=== PATIENT | male | born 1955 | race Caucasian/White ===

== ENCOUNTER → 2020-10-12 08:25 | Outpatient (BNVA) | payer OTHER, SELFPAY | PROVIDERS: PCP Internal Medicine; Referring Provider Internal Medicine; Visit Provider Surgery | DX: Z76.89 Persons encountering health services in other specified circumstances (principal) ==

== ENCOUNTER → 2021-07-14 08:04 | Outpatient (BNVA) | payer MEDICARE, BC, SELFPAY | PROVIDERS: PCP Internal Medicine; Visit Provider Surgery | DX: Z13.89 Encounter for screening for other disorder (principal) | CPT/HCPCS: Q3014 ==

== ENCOUNTER → 2021-08-04 11:58 | Outpatient (BNVA) | payer MEDICARE, BC, SELFPAY | PROVIDERS: PCP Internal Medicine; Visit Provider Surgery | DX: E66.9 Obesity, unspecified (principal); Z68.29 Body mass index [BMI] 29.0-29.9, adult | CPT/HCPCS: 99212 ==

== ENCOUNTER → 2022-02-09 11:52 | Outpatient (BNVA) | payer MEDICARE, BC, SELFPAY | PROVIDERS: PCP Internal Medicine; Visit Provider Surgery | DX: E66.9 Obesity, unspecified (principal); K90.9 Intestinal malabsorption, unspecified; I10 Essential (primary) hypertension; Z68.30 Body mass index [BMI] 30.0-30.9, adult; Z87.891 Personal history of nicotine dependence; Z98.84 Bariatric surgery status | CPT/HCPCS: 99212 ==

== ENCOUNTER → 2023-01-11 11:50 | Outpatient (BNVA) | payer MEDICARE, BC, SELFPAY | PROVIDERS: PCP Internal Medicine; Visit Provider Surgery | DX: E66.9 Obesity, unspecified (principal); I10 Essential (primary) hypertension; E11.9 Type 2 diabetes mellitus without complications; Z68.31 Body mass index [BMI] 31.0-31.9, adult; Z98.84 Bariatric surgery status | CPT/HCPCS: 99212 ==

== ENCOUNTER → 2023-02-03 12:12 | Outpatient (BNVA) | payer MEDICARE, BC, SELFPAY | PROVIDERS: PCP Internal Medicine; Visit Provider Surgery | DX: E66.9 Obesity, unspecified (principal); Z68.30 Body mass index [BMI] 30.0-30.9, adult | CPT/HCPCS: 99212 ==

== ENCOUNTER → 2023-03-03 08:02 | Outpatient (BNVA) | payer MEDICARE, BC, SELFPAY | PROVIDERS: PCP Internal Medicine; Visit Provider Surgery | DX: E66.9 Obesity, unspecified (principal); Z68.30 Body mass index [BMI] 30.0-30.9, adult; Z98.84 Bariatric surgery status | CPT/HCPCS: Q3014 ==

== ENCOUNTER → 2023-03-31 08:10 | Outpatient (BNVA) | payer MEDICARE, BC, SELFPAY | PROVIDERS: PCP Internal Medicine; Visit Provider Surgery | DX: E66.9 Obesity, unspecified (principal); Z68.30 Body mass index [BMI] 30.0-30.9, adult | CPT/HCPCS: Q3014 ==

== ENCOUNTER 2024-11-15 11:05 | Outpatient (AMB) | payer MEDICARE, BC, SELFPAY ==
--- NOTE | 2024-11-15 11:06 | MHC.OFFVISWM ---
VS Expanded 11/15/24 11:11 BP 134/63 Blood Pressure Location Rt brachial Blood Pressure Position Sitting Pulse 80 Pulse Source Pulse Oximeter Temp 97.7 F Temperature Source Temporal Artery Scan Pulse Oximetry 100 Oxygen Delivery Method Room Air Height 5 ft 9 in Weight 188 lb 9.6 oz BMI 27.8 Body Fat % 23.6 Body Fat Mass 44.6 Fat Free Mass 144.0 Visceral Fat Rating 14.0 Body Water % 53.0 Body Water Mass 99.8 Muscle Mass/Score 137.0 Basal Metabolic Rate/Score 1,883 Intake Visit Reasons: OV Follow Up s/p LRYGP 2012 Allergies No Known Allergies Allergy (Verified 11/15/24 11:40) Medication List - Last Reconciled 11/15/24 by Isaac Rizvi MD allopurinol 100 mg PO DAILY lisinopril 10 mg PO DAILY pantoprazole 40 mg PO DAILY semaglutide (Ozempic) 0.25 mg (0.368 mL) subcut QWEEK simvastatin 40 mg PO DAILY HPI Comments Details: Overall weight loss: 65% EWL from surgery weight Lost recently 27lbs on Agapito Is doing 3 meals per day He has noticed that he has lost muscle and he is less stable when he stands [facility] Medical History (Updated 11/15/24 @ 11:43 by Isaac Rizvi MD) Non-insulin dependent type 2 diabetes mellitus Hypertension Surgical History S/P gastric bypass Family History Mother No problems noted. Father No problems noted. Brother No problems noted. Brother No problems noted. Brother No problems noted. Sister No problems noted. Sister No problems noted. Sister No problems noted. Social History (Updated 11/15/24 @ 11:09 by Marni Stubbs CMA) Alcohol intake: current Alcohol intake frequency: a few times a week Alcohol type: wine Patient Tobacco Use Status: Former Tobacco user Physical Exam Vital Signs: Last Vital Signs Temp 97.7 F 11/15/24 11:11 Pulse 80 11/15/24 11:11 BP 134/63 11/15/24 11:11 Pulse Ox 100 11/15/24 11:11 Oxygen Delivery Method Room Air 11/15/24 11:11 BMI result Body Mass Index 27.8 GI Inspection: Yes normal to inspection and Yes incision (well healed) Assessment & Plan Assessment & Plan (1) Intestinal malabsorption: Code(s): K90.9 - Intestinal malabsorption, unspecified Category: Medical Qualifiers: Intestinal malabsorption type: other intolerance-related malabsorption Qualified Code(s): K90.49 - Malabsorption due to intolerance, not elsewhere classified Plan: 1. We discussed the importance of the protein intake especially in conjunction with the Mounjaro and the gastric bypass. We discussed how the bariatric surgery affects the absorption of protein and in conjunction with the anorexic effect of mounjaro he can become malnourished. We discussed the importance of consuming at least two Celebrate protein bars, or the 1-2 bottles of the Celebrate protein water. I also encouraged him to exercise regularly about 150 min per week Orders: Orders Complete Blood Count Auto Diff Today K90.9 - Intestinal malabsorption, unspecified Lipid Panel Today K90.9 - Intestinal malabsorption, unspecified IRON PROFILE Today K90.9 - Intestinal malabsorption, unspecified Vitamin B12 and Folate Today K90.9 - Intestinal malabsorption, unspecified Vitamin B1 Today K90.9 - Intestinal malabsorption, unspecified Vitamin A Today K90.9 - Intestinal malabsorption, unspecified TSH reflex Free T4 Today K90.9 - Intestinal malabsorption, unspecified Insulin Today K90.9 - Intestinal malabsorption, unspecified Hemoglobin A1c Today K90.9 - Intestinal malabsorption, unspecified Comprehensive Met. Panel Today K90.9 - Intestinal malabsorption, unspecified Zinc Today K90.9 - Intestinal malabsorption, unspecified C Reactive Protein Today K90.9 - Intestinal malabsorption, unspecified Ferritin Today K90.9 - Intestinal malabsorption, unspecified Vitamin D 25-OH Total Today K90.9 - Intestinal malabsorption, unspecified Referrals Nutrition/Dietitian Referral K90.9 - Intestinal malabsorption, unspecified Behavioral Health Referral K90.9 - Intestinal malabsorption, unspecified
[2024-11-15 11:11] VITALS: BP 134/63; PULSE 80; TEMP 36.5; O2SAT 100; BMI 27.8
== END 2024-11-15 11:45 | disposition home or self-care (01) ==
LOC: HO.HBS 11:05
PROVIDERS: PCP Internal Medicine; Visit Provider Surgery
DX: K91.2 Postsurgical malabsorption, not elsewhere classified (principal)
CPT/HCPCS: 99213

== ENCOUNTER 2024-11-15 11:05 | Outpatient (REF) | payer MEDICARE, BC, SELFPAY | END 2024-11-15 11:06 | disposition home or self-care (01) | LOC: HO.LAB 11:05 | PROVIDERS: PCP Internal Medicine; Visit Provider Surgery | DX: K90.49 Malabsorption due to intolerance, not elsewhere classified (principal) | CPT/HCPCS: 99212 ==

== ENCOUNTER 2025-03-07 11:03 | Outpatient (AMB) | payer MEDICARE, BC, SELFPAY ==
--- NOTE | 2025-03-07 11:17 | A.OFFVIS_ITS ---
Intake Visit Reasons: OV Follow Up s/p LRYGP 2013 Allergies No Known Allergies Allergy (Verified 11/15/24 11:40) HPI Comments Details: Overall weight loss: 65% EWL from surgery weight Lost recently 27lbs on Mounjaro. He is off the Mounjaro for a month and he maintains the weight loss so far. Is doing 2 protein bars and 2 meals per day He is doing the stationary bike for 500 calories, 4 days per week [facility] Medical History (Updated 03/07/25 @ 12:01 by Isaac Rizvi MD) Non-insulin dependent type 2 diabetes mellitus Hypertension Surgical History S/P gastric bypass Family History Mother No problems noted. Father No problems noted. Brother No problems noted. Brother No problems noted. Brother No problems noted. Sister No problems noted. Sister No problems noted. Sister No problems noted. Social History (Updated 11/15/24 @ 11:09 by Marni Stubbs CMA) Alcohol intake: current Alcohol intake frequency: a few times a week Alcohol type: wine Patient Tobacco Use Status: Former Tobacco user Physical Exam GI Inspection: Yes normal to inspection and Yes incision (well healed) Palpation (GI): Soft to palpation Extrem Right lower extremity: normal to inspection Left lower extremity: normal to inspection Assessment & Plan Assessment & Plan (1) Intestinal malabsorption: Code(s): K90.9 - Intestinal malabsorption, unspecified Category: Medical Qualifiers: Intestinal malabsorption type: other intolerance-related malabsorption Qualified Code(s): K90.49 - Malabsorption due to intolerance, not elsewhere classified Plan: 1. We discussed the importance of the protein intake especially in conjunction with the Mounjaro and the gastric bypass. We discussed how the bariatric surgery affects the absorption of protein and in conjunction with the anorexic effect of mounjaro he can become malnourished. We discussed the importance of consuming at least two Celebrate protein bars. 2. Continue present nutritional and exercise plan Medications: New cholecalciferol (vitamin D3) 125 mcg PO DAILY 90 caps 0RF E55.9 - Vitamin D deficiency, unspecified mecobalamin (vitamin B12) place tablet under tongue and allow to dissolve for at least30 secs before swallowing 1,000 mcg sublingual DAILY 90 tabs 0RF E53.8 - Deficiency of other specified B group vitamins
--- OUTSIDE RECORDS SUMMARY | 2025-03-07 11:35 | XMS_ITS | Encounter Summary ---
Author Organization [facility] Address [address] [place] [address] Care Team Providers Care Appliance Service Supervisor Name Role Phone Hasmukh Lua DO Unavailable [phone] Hasmukh Lua DO Primary Care Provider + [phone] Encounter Details Date Type Department Care Team (Late st Contact Info) Description 11/20/2024 Scanned Document [facility] Department of Internal Medicine Hasmukh Lua MD [address] [place] [address] [phone] Hasmukh Lua DO [address] [place] [phone] Social History Tobacco Use Types Packs/Day Years Used Date Smoking Tobacco: Former Cigarettes Smokeless Tobacco: Never Comments:Quit at age 19 PHQ-2 Answer Date Recorded PHQ-2 Total Score 0 06/24/2024 Sex and Gender Information Value Date Recorded Sex Assigned at Male 06/13/2023 7:12 AM EDT Legal Sex Male 6:39 PM EDT Gender Identity Male 06/13/2023 7:12 AM EDT Sexual Orientation Other 06/13/2023 7: 12 AM EDT documented as of this encounter Plan of Treatment Upcoming Encounters Date Type Department Care Team (Late st Contact Info) Description 07/02/2025 11:30 AM EDT Office Visit [facility] Department of Internal Medicine Hasmukh Lua MD [address] [place] [address] [phone] Hasmukh Lua DO [address] [place] [phone] documented as of this encounter Visit Diagnoses Not on filedocumented in this encounter Care Teams Appliance Service Supervisor Relationship Specialty Start Date End Date Hasmukh Lua DO [address] [place] [address] PCP - [facility] Patients 11/30/22 Hasmukh Lua DO [address] [place] [address] PCP - General Internal Medicine 06/16/23 documented as of this encounter
--- OUTSIDE RECORDS SUMMARY | 2025-03-07 11:35 | XMS_ITS | Encounter Summary ---
Author Organization [facility] Address [address] [place] [address] Care Team Providers Care C Application Developer Name Role Phone Hasmukh Lua DO Unavailable [phone] Hasmukh Lua DO Primary Care Provider [phone] Reason for Visit * Reason Onset Date Comments Medication Refill 03/05/2025 Encounter Details Date Type Department Care Team (Late st Contact Info) Description 03/05/2025 Refill [facility] Department of Internal Medicine Hasmukh Lua MD [address] [place] [phone] Hasmukh Lua DO [address] [place], [place] [phone] Class 1 obesity with body mass index (BMI) of 32.0 to 32.9 in adult, unspecified obesity type, unspecified whether serious comorbidity present Social History Tobacco Use Types Packs/Day Years [...] Description 07/02/2025 11:30 AM EDT Office Visit [facility] Department of Internal Medicine Hasmukh Lua MD [address] [place] [phone] Hasmukh Lua DO [address] [place] [address] documented as of this encounter Visit Diagnoses Diagnosis Class 1 obesity with body mass index (BMI) of 32.0 to 32.9 in adult, unspecified obesity type, unspecified whether serious comorbidity present documented in this encounter Care Teams C Application Developer Relationship Specialty Start Date End Date Hasmukh Lua DO [address] [place] [phone] PCP - [facility] Patients 11/30/22 Hasmukh Lua DO [address] [place] [address] PCP - General Internal Medicine 06/16/23 documented as of this encounter
--- OUTSIDE RECORDS SUMMARY | 2025-03-07 11:35 | XMS_ITS | Clinical Summary ---
Author Organization [facility] Address [address] [place] [address] Care Team Providers Care Medical Claims Representative Name Role Phone Hasmukh Lua MD Primary Care Provider [phone] Allergies No known active allergies Medications calcium carbonate-mag hydroxid 1,000-200 mg tablet,chewable Take by mouth. Active lansoprazole (PREVACID) 30 mg capsule 5 Active multivitamin,tx -irip-Xt-EQ-min 27-0.4 mg tablet Take by mouth. Activ e simvastatin (ZOCOR) 40 mg tablet Take 40 mg by mouth. 3 9 Active cyanocobalamin 100 mcg tablet Take by mouth. Active fluorouracil (EFUDEX) 5 % creamIndication s:AK (actinic keratosis) Apply twice daily to affected areas 40 g 1 9 Active calcipotriene (DOVONOX) 0.005 % creamIndication s:AK (actinic keratosis) Apply twice daily to affected areas 60 g 1 9 Active Additional Information Patient not taking.Reported on 09/11/2019 allopurinol (ZYLOPRIM) 100 mg tablet Take 100 mg by mouth. 1 9 Active Social History Tobacco Use Types Packs/Day Years Used Date Smoking Tobacco: Never Assessed Sex and Gender Information Value Date Recorded Sex Assigned at Not on file Legal Sex Male 4:57 AM EST Gender Identity Not on file Sexual Orientation Not on file Plan of Treatment Health Maintenance Due Date Last Done Comments CT Colonography 1954 Colonoscopy 1954 Colorectal Cancer Screening 1954 FIT-DNA (Cologuard) 1954 FIT 1954 FOBT 1954 Flex Sigmoidoscopy - 5y 1954 HIV Screening 1954 DTaP,Tdap,and Td Vaccines (1 - Tdap) 1972 Pneumococcal Vaccine, 50+ Ye ars (1 of 1 - PCV) 2004 Zoster Vaccines (1 of 2) 2004 COVID-19 Vaccine (1 - 2023-2 5 season) 2024 Influenza Vaccine (Season Ended) 2025 HPV Vaccines Aged Out No longer eligi ble based on patient's age to complete this topic Hepatitis A Vaccines Aged Out No long er eligible based on patient's age to complete this topic Meningococcal Vaccine Aged Out No roya mary carmen eligible based on patient's age to complete this topic Insurance MEDICARE PART A & B [place] [id number] Care Teams Medical Claims Representative Relationship Specialty Start Date End Date Hasmukh Lua MD [address] [place] [address] PCP - General 12/27/17
--- OUTSIDE RECORDS SUMMARY | 2025-03-07 11:35 | XMS_ITS | Encounter Summary ---
Author Organization [facility] Address [address] [place] [address] Care Team Providers Care Pressroom Worker Name Role Phone Hasmukh Lua DO Unavailable [phone] Hasmukh Lua DO Primary Care Provider +- [phone] Encounter Details Date Type Department Care Team (Late st Contact Info) Description 06/16/2023 Scanned Document [facility] Department of Internal Medicine Hasmukh Lua MD [address] [place] [phone] Hasmukh Lua DO [address] [place] [address] Social History Tobacco Use Types Packs/Day Years Used Date Smoking Tobacco: Never Assessed PHQ-2 Answer Date Recorded PHQ-2 Total Score 0 06/16/2023 Sex and Gender Information Value Date Recorded Sex Assigned at Male 06/13/2023 7:12 AM EDT Legal Sex Male 6:39 PM EDT Gender Identity Male 06/13/2023 7:12 AM EDT Sexual Orientation Other 06/13/2023 7: 12 AM EDT documented as of this encounter Functional Status * Over the past 2 weeks, how often have you been bothered by any of the following problems? Question Answer Date of Assessment Author Patient Health Questionnaire -2 Score 0 06/16/2023 9:41 AM EDT Hasmukh Lua, DO * Question Answer Date of Assessment Author Patient Health Questionnaire -9 Score 0 06/16/2023 9:41 AM EDT Hasmukh Lua, DO * Question Answer Date of Assessment Author Little interest or pleasure in doing things Not at all 06/16/2023 9:41 AM Hasmukh Blue, DO Feeling down, depressed, or hopeless Not at all 06/16/2023 9:41 AM Hasmukh Blue, DO Trouble falling or staying asleep, or sleeping too much Not at all 06/16/2023 9:41 AM Hasmukh Blue, DO Feeling tired or having little energy Not at all 06/16/2023 9:41 AM Hasmukh Blue, DO Poor appetite or overeating Not at all 06/16/2023 9: 41 AM Hasmukh Blue, DO Feeling bad about yourself - or that you are a failure or have let yourself or your family down Not at all 06/16/2023 9:41 AM Hasmukh Blue, DO Trouble concentrating on things, such as reading the newspaper or watching television Not at all 06/16/2023 9:41 AM Hasmukh Blue, DO Moving or speaking so slowly that other people could have noticed? Or the opposite - being so fidgety or restless that you have been moving around a lot more than usual. Not at all 06/16/2023 9:41 AM Hasmukh Molina, DO Thoughts that you would be better off or hurting yourself in some way Not at all 06/16/2023 9:41 AM MARIOT Rock Lua DO documented as of this encounter Plan of Treatment Upcoming Encounters Date Type Department Care Team (Late st Contact Info) Description 07/02/2025 11:30 AM EDT Office Visit [facility] Department of Internal Medicine Hasmukh Lua MD [address] [place] [phone] Hasmukh Lua DO [address] [place], [place] [address] documented as of this encounter Visit Diagnoses Not on filedocumented in this encounter Care Teams Pressroom Worker Relationship Specialty Start Date End Date Hasmukh Lua DO [address] [place] [address] PCP - [facility] Patients 11/30/22 Hasmukh Lua DO [address] [place] [address] PCP - General Internal Medicine 06/16/23 documented as of this encounter
--- OUTSIDE RECORDS SUMMARY | 2025-03-07 11:35 | XMS_ITS | Encounter Summary ---
Author Organization [facility] Address [address] [place] [address] Care Team Providers Care Extermination Inspector Name Role Phone Hasmukh Lua DO Unavailable [phone] Hasmukh Lua DO Primary Care Provider + [phone] Encounter Details Date Type Department Care Team (Late st Contact Info) Description 02/11/2025 Scanned Document [facility] Department of Internal Medicine Hasmukh Lua MD [address] [place] [phone] Hasmukh Lua DO [address] [place] [phone] Social History Tobacco Use Types Packs/Day Years [...] Description 07/02/2025 11:30 AM EDT Office Visit [facility] Department of Internal Medicine Hasmukh Lua MD [address] [place] [phone] Hasmukh Lua DO [address] [place] [address] documented as of this encounter Visit Diagnoses Not on filedocumented in this encounter Care Teams Extermination Inspector Relationship Specialty Start Date End Date Hasmukh Lua DO [address] [place] [address] PCP - [facility] 11/30/22 Hasmukh Lua DO [address] [place] [address] PCP - General Internal Medicine 06/16/23 documented as of this encounter
--- OUTSIDE RECORDS SUMMARY | 2025-03-07 11:35 | XMS_ITS | Clinical Summary ---
Author Organization [facility] Address [address] [place] [address] Care Team Providers Care Director Part Name Role Phone Hasmukh Lua DO Unavailable [phone] Hasmukh Lua DO Primary Care Provider [phone] Allergies No known active allergies Medications PANTOprazole (PROTONIX) 40 MG EC tabletIndications :Gastroesophageal reflux disease without esophagitis TAKE 1 TABLET BY MOUTH EVERY DAY 90 tablet 3 01/01/20 24 Active simvastatin (ZOCOR) 40 MG tabletIndications :Hyperlipidemia, unspecified hyperlipidemia type TAKE 1 TABLET BY MOUTH EVERY DAY 90 tablet 3 05/07/20 24 Active allopurinol (ZYLOPRIM) 100 mg tabletIndications :Gout, unspecified cause, unspecified chronicity, unspecified site TAKE 1 TABLET BY MOUTH EVERY DAY 90 tablet 3 05/07/20 24 Active lisinopril (PRINIVIL,ZeSTRIL ) 10 MG tabletIndications :Primary hypertension TAKE 1 TABLET BY MOUTH EVERY DAY 90 tablet 3 07/15/20 24 Active Mounjaro 10 MG/0.5ML pen-injectorIndic ations:Class 1 obesity with body mass index (BMI) of 32.0 to 32.9 in adult, unspecified obesity type, unspecified whether serious comorbidity present INJECT 1 PEN (10 MG TOTAL) UNDER THE SKIN ONCE A WEEK. 2 each 3 02/10/20 25 Active phentermine 37.5 MG capsuleIndication s:Class 1 obesity with body mass index (BMI) of 32.0 to 32.9 in adult, unspecified obesity type, unspecified whether serious comorbidity present Take 1 capsule (37.5 mg total) by mouth every morning. 90 capsule 03/05/20 25 Active Mounjaro 10 MG/0.5ML pen-injectorIndic ations:Class 1 obesity with body mass index (BMI) of 32.0 to 32.9 in adult, unspecified obesity type, unspecified whether serious comorbidity present INJECT 1 PEN(S) (10 MG TOTAL) UNDER THE SKIN ONCE A WEEK. 2 each 3 10/16/20 24 025 Discontinued phentermine 37.5 MG capsuleIndication s:Class 1 obesity with body mass index (BMI) of 32.0 to 32.9 in adult, unspecified obesity type, unspecified whether serious comorbidity present Take 1 capsule (37.5 mg total) by mouth every morning. 90 capsule 11/29/19 25 025 Discontinued(Re order) Active Problems Problem Noted Date Diagnosed Date Primary hypertension 06/24/2024 Acute idiopathic gout of multiple sites 06/24/20 Other hyperlipidemia 06/24/2024 Benign prostatic hyperplasia 06/24/2024 Cervical spondylosis 06/24/2024 Impaired fasting glucose 06/24/2024 Resolved Problems Problem Noted Date Diagnosed Date Resolved Date Routine general medical exam ination at a health care facility 06/16/2023 09/25/2024 Encounters Date Type Department Care Team Description 03/05/2025 Refill [facility] Department of Internal Medicine Hasmukh Lua MD [address] [place] [phone] Hasmukh Lua, Class 1 obesity with body mass index (BMI) of 32.0 to 32.9 in adult, unspecified obesity type, unspecified whether serious comorbidity present 03/05/2025 Telephone [facility] Department of Internal Medicine Hasmukh Lua MD [address] [place] [phone] Hasmukh Lua DO 02/11/2025 Scanned Document [facility] Department of Internal Medicine Hasmukh Lua MD [address] [place] [phone] Hasmukh Lua DO 02/09/2025 Refill [facility] Department of Internal Medicine Hasmukh Lua MD [address] [place] [phone] Hasmukh Lua DO Class 1 obesity with body mass index (BMI) of 32.0 to 32.9 in adult, unspecified obesity type, unspecified whether serious comorbidity present from Last 3 Months Immunizations Immunization Administration Dates Next Due Pneumococcal Conjugate 13-Valent 09/25/2019 Pneumococcal Polysaccharide 23-Valent 10/06/2020 Tdap 01/04/2018,06/03/2008 Zoster Vaccine Recombinant (Shingrix) 01/04/2018 Social History Tobacco Use Types Packs/Day Years Used Date Smoking Tobacco: Former Cigarettes Smokeless Tobacco: Never Tobacco Cessation:Counseling Given: Not Answered Comments:Quit at age 19 PHQ-2 Answer Date Recorded PHQ-2 Total Score 0 06/24/2024 Sex and Gender Information Value Date Recorded Sex Assigned at Male 06/13/2023 7:12 AM EDT Legal Sex Male 6:39 PM EDT Gender Identity Male 06/13/2023 7:12 AM EDT Sexual Orientation Other 06/13/2023 7: 12 AM EDT Last Filed Vital Signs Vital Sign Reading Time Taken Comments Blood Pressure 130/82 11/21/2024 7:55 AM EST Pulse 81 11/21/2024 7:55 AM EST Temperature 36.2 ??C (97.1 ??F) 11/21/2024 7:55 AM ES T Respiratory Rate - - Oxygen Saturation 100% 11/21/2024 7:55 AM EST Inhaled Oxygen Concentration - - Weight 86.6 kg (191 lb) 11/21/2024 7:55 AM EST Height 175.3 cm (5' 9 ) 11/21/2024 7:55 AM EST Body Mass Index 28.21 11/21/2024 7:55 AM EST Plan of Treatment Upcoming Encounters Date Type Department Care Team (Late st Contact Info) Description 07/02/2025 11:30 AM EDT Office Visit [facility] Department of Internal Medicine Hasmukh Lua MD [address] [place] [phone] Hasmukh Lua DO [address] [place] [address] Health Maintenance Due Date Last Done Comments Hepatitis C Virus Screening 1954 Colonoscopy 1999 Zoster (Shingles) Vaccine (2 of 2) 03/01/2018 01/04/2018 Abdominal Aortic Aneurysm (AAA) Screening 2019 COVID-19 Vaccine (3 - 2023-2 5 season) 2024 06/10/2021, 2021 Influenza Vaccine 05/30/2025 DTaP/Tdap/Td Vaccines (3 - T d or Tdap) 01/05/2028 01/04/2018, 06/03/2008 RSV Vaccine 60 years and older and Patients (1 - 1-dose 75+ series) 2029 Pneumococcal Vaccines 50+ Completed 2019, 09/25/2019 Hepatitis B Vaccines Aged Out No long er eligible based on patient's age to complete this topic Insurance MEDICARE PART A & B Care Teams Director Part Relationship Specialty Start Date End Date Hasmukh Lua DO [address] [place] [address] PCP - [facility] 11/30/22 Hasmukh Lua DO [address] [place] [phone] PCP - General Internal Medicine 06/16/23
--- OUTSIDE RECORDS SUMMARY | 2025-03-07 11:35 | XMS_ITS | Encounter Summary ---
Author Organization [facility] Address [address] [place] [address] Care Team Providers Care Training Administrator Name Role Phone Hasmukh Lua DO Unavailable [phone] Hasmukh Lua DO Primary Care Provider [phone]- [phone] Encounter Details Date Type Department Care Team (Late st Contact Info) Description 03/05/2025 Telephone [facility] Department of Internal Medicine Hasmukh Lua MD [address] [place] [phone] Hasmukh Lua DO [address] [place], [place] [phone] Social History Tobacco Use Types Packs/Day Years [...] AM EDT documented as of this encounter Miscellaneous Notes * Telephone Encounter - Michelle Bowers - 03/05/2025 9:22 AM EDT Phentermine refill [facility] documented in this encounter Plan of Treatment Upcoming Encounters Date Type Department Care Team (Late st Contact Info) Description 07/02/2025 11:30 AM EDT [facility] Department of Internal Medicine Hasmukh Lua MD [address] [place] [phone] Hasmukh Lua DO [address] [place] [phone] documented as of this encounter Visit Diagnoses Not on filedocumented in this encounter Care Teams Training Administrator Relationship Specialty Start Date End Date Hasmukh Lua DO [address] [place] [phone] PCP - [facility] 11/30/22 Hasmukh Lua DO [address] [place] [phone] PCP - General Internal Medicine 06/16/23 documented as of this encounter
--- OUTSIDE RECORDS SUMMARY | 2025-03-07 11:35 | XMS_ITS | Encounter Summary ---
Author Organization [facility] Address [address] [place] [address] Care Team Providers Care Procedural Nurse Name Role Phone Hasmukh Lua DO Unavailable [phone] Hasmukh Lua DO Primary Care Provider +- [phone] Reason for Visit * Reason Comments Medication Refill Encounter Details Date Type Department Care Team (Late Contact Info) Description 02/13/2023 Refill [facility] Department of Internal Medicine Hasmukh Lua MD [address] [place] [address] [phone] Hasmukh Lua DO [address] [place] [address] [phone] Gastroesophageal reflux disease without esophagitis (Primary Dx) Social History Tobacco Use Types Packs/Day Years [...] Encounters Date Type Department Care Team (Late Contact Info) Description 07/02/2025 11:30 AM EDT Office Visit [facility] Department of Internal Medicine Hasmukh Lua MD [address] [place] [phone] Hasmukh Lua DO [address] [place] [address] documented as of this encounter Visit Diagnoses Diagnosis Gastroesophageal reflux disease without esophagitis- Primary Esophageal reflux documented in this encounter Care Teams Procedural Nurse Relationship Specialty Start Date End Date Hasmukh Lua DO [address] [place] [address] PCP - [facility] Patients 11/30/22 Hasmukh Lua DO [address] [place] [address] PCP - General Internal Medicine 06/16/23 documented as of this encounter
--- OUTSIDE RECORDS SUMMARY | 2025-03-07 11:35 | XMS_ITS | Clinical Summary ---
Author Organization [facility] Address [address] [place] [address] Care Team Providers Care Montessori Teacher Name Role Phone Hasmukh Lua MD Primary Care Provider + [phone] Allergies No known active allergies Medications Medication Sig Dispensed Refills Start Date End Date Status Lansoprazole (PREVACID PO) Take 30 mg by mouth daily. 0 Active simvastatin (ZOCOR) 20 MG tablet Take 20 mg by mouth daily. 0 Active Multiple Vitamins-Minerals (CENTRUM SILVER ADULT 50+ PO) Take by mouth. 0 Active vitamin B-12 (CYANOCOBALAMIN) 100 MCG tablet Take 100 mcg by mouth daily. 0 Active Calcium Carbonate-Vit D-Min (CALCIUM 1200 PO) Take by mouth. 0 Act josé miguel Multiple Vitamins-Minerals (CENTRUM SILVER) tablet Centrum Silver TABS Refills: 0 Active 0 Active simvastatin (ZOCOR) 40 MG tablet 5 03/08/2015 Active phentermine 30 MG capsule Take 1 capsule (30 mg total) by mouth every morning before breakfast. 90 capsule 0 04/27/2015 Active lansoprazole (PREVACID) 30 MG capsule 1 07/26/2015 Active Active Problems Problem Noted Date Diagnosed Date Bariatric surgery status 09/21/2015 Abnormal weight gain 09/21/2015 BMI 27.0-27.9,adult 09/21/2015 Social History Tobacco Use Types Packs/Day Years Used Date Smoking Tobacco: Never Alcohol Use Standard Drinks/Week Comments Yes 0 (1 standard drink = 0.6 oz pur e alcohol) social wine Sex and Gender Information Value Date Recorded Sex Assigned at Not on file Gender Identity Not on file Sexual Orientation Not on file Last Filed Vital Signs Vital Sign Reading Time Taken Comments Blood Pressure 133/70 04/27/2015 2:14 PM EDT Pulse 54 04/27/2015 2:14 PM EDT Temperature 36.6 ??C (97.8 ??F) 04/27/2015 2:14 PM ED T Respiratory Rate 13 03/03/2014 3:50 PM EDT Oxygen Saturation 97% 03/03/2014 3:50 PM EDT Inhaled Oxygen Concentration - - Weight 88 kg (194 lb 1.6 oz) 04/27/2015 2:14 PM EDT Height 177.8 cm (5' 10 ) 04/27/2015 2:14 PM EDT Body Mass Index 27.85 04/27/2015 2:14 PM EDT Plan of Treatment Health Maintenance Due Date Last Done Comments Hepatitis C Screening 1954 COVID-19 Vaccine (#1) 1954 Depression Screening 1966 Preventative Health Evaluation 1972 DTap / Tdap / Td (1 - Tdap) 1973 Colon Cancer Screening (Colonoscopy) 1999 Shingrix-Zoster Vaccine (1 of 2) 2004 Fall Risk Assessment 2019 Pneumococcal Vaccine (1 of 1 - PCV) 2019 Influenza Vaccine (#1) 2024 RSV Adult > 60+ Yrs or Pregn ant (1 - 1-dose 75+ series) 2029 Hepatitis B Vaccines Aged Out No long er eligible based on patient's age to complete this topic RSV Ped < 20 months Aged Out No longe r eligible based on patient's age to complete this topic Advance Directives For more information, please contact: [phone] Latest Code Status on File Code Status Date Activated Date Inactivated Comments Full Code 03/03/2014 3:26 PM 03/03/2014 10:23 PM This code status was ascertained in the following way: discussion with patient. Care Teams Montessori Teacher Relationship Specialty Start Date End Date Hasmukh Lua MD PCP - General Internal Medicine 04/27/15
--- OUTSIDE RECORDS SUMMARY | 2025-03-07 11:35 | XMS_ITS | Encounter Summary ---
Author Organization [facility] Address [address] [place] [address] Care Team Providers Care Supervisor Spinning Name Role Phone Hasmukh Lua DO Unavailable [phone] Hasmukh Lua DO Primary Care Provider + [phone] Encounter Details Date Type Department Care Team (Late st Contact Info) Description 11/13/2023 Scanned Document [facility] Department of Internal Medicine Hasmukh Lua MD [address] [place] [address] [phone] Hasmukh Lua DO [address] [place] [phone] Social History Tobacco Use Types Packs/Day Years [...] Description 07/02/2025 11:30 AM EDT Office Visit [facility] Department of Internal Medicine Hasmukh Lua MD [address] [place] [address] [phone] Hasmukh Lua DO [address] [place] [address] documented as of this encounter Visit Diagnoses Not on filedocumented in this encounter Care Teams Supervisor Spinning Relationship Specialty Start Date End Date Hasmukh Lua DO [address] [place] [address] PCP - [facility] Patients 11/30/22 Hasmukh Lua DO [address] [place] [address] PCP - General Internal Medicine 06/16/23 documented as of this encounter
--- OUTSIDE RECORDS SUMMARY | 2025-03-07 11:35 | XMS_ITS | Encounter Summary ---
Author Organization [facility] Address [address] [place] [address] Care Team Providers Care Tread Builder Name Role Phone Hasmukh Lua DO Unavailable [phone] Hasmukh Lua DO Primary Care Provider + [phone] Encounter Details Date Type Department Care Team (Late st Contact Info) Description 11/14/2024 Scanned Document [facility] Department of Internal Medicine Hasmukh Lua MD [address] [place] [address] [phone] Hasmukh Lua DO [address] [place] [phone] Social History Tobacco Use Types Packs/Day Years [...] Description 07/02/2025 11:30 AM EDT Office Visit [facility] Department of Internal Medicine Hasmukh Lua MD [address] [place] [address] [phone] Hasmukh Lua DO [address] [place] [phone] documented as of this encounter Visit Diagnoses Not on filedocumented in this encounter Care Teams Tread Builder Relationship Specialty Start Date End Date Hasmukh Lua DO [address] [place] [address] PCP - [facility] Patients 11/30/22 aHsmukh Lua DO [address] [place] [address] PCP - General Internal Medicine 06/16/23 documented as of this encounter
== END 2025-03-07 19:18 | disposition home or self-care (01) ==
LOC: HO.HBS 11:04
PROVIDERS: PCP Internal Medicine; Visit Provider Surgery
DX: K91.2 Postsurgical malabsorption, not elsewhere classified (principal)
CPT/HCPCS: 99214

== ENCOUNTER → 2025-03-07 11:03 | Outpatient (BNVA) | payer MEDICARE, BC, SELFPAY | PROVIDERS: PCP Internal Medicine; Visit Provider Surgery | DX: K90.49 Malabsorption due to intolerance, not elsewhere classified (principal); E55.9 Vitamin D deficiency, unspecified; E53.8 Deficiency of other specified B group vitamins | CPT/HCPCS: 99212 ==

== ENCOUNTER 2025-06-27 10:45 | Outpatient (AMB) | payer MEDICARE, BC, SELFPAY ==
--- NOTE | 2025-06-27 10:47 | A.OFFVIS_ITS ---
VS Expanded 06/27/25 11:24 BP 133/63 Blood Pressure Location Rt brachial Blood Pressure Position Sitting Pulse 73 Pulse Source Pulse Oximeter Temp 96.8 F Temperature Source Temporal Artery Scan Pulse Oximetry 100 Oxygen Delivery Method Room Air Height 5 ft 9 in Weight 182 lb BMI 26.9 Body Fat % 24.8 Body Fat Mass 45.2 Fat Free Mass 136.6 Visceral Fat Rating 15.0 Body Water % 51.0 Body Water Mass 92.8 Muscle Mass/Score 129.8 Basal Metabolic Rate/Score 1,789 Intake Visit Reasons: OV Follow Up s/p LRYGP 2012 Allergies No Known Allergies Allergy (Verified 06/27/25 12:56) Medication List - Last Reconciled 06/27/25 by Isaac Rizvi MD allopurinol 100 mg PO DAILY cholecalciferol (vitamin D3) 125 mcg PO DAILY lisinopril 10 mg PO DAILY mecobalamin (vitamin B12) 1,000 mcg sublingual DAILY pantoprazole 40 mg PO DAILY simvastatin 40 mg PO DAILY HPI Comments Details: No new health problems Off Agapito Is doing one protein bar per day and 2 meals per day Exercise: treadmill for 500 calories x6/wk [facility] Medical History (Updated 03/07/25 @ 12:01 by Isaac Rizvi MD) Non-insulin dependent type 2 diabetes mellitus Hypertension Surgical History S/P gastric bypass Family History Mother No problems noted. Father No problems noted. Brother No problems noted. Brother No problems noted. Brother No problems noted. Sister No problems noted. Sister No problems noted. Sister No problems noted. Social History Alcohol intake: current Alcohol intake frequency: a few times a week Alcohol type: wine Patient Tobacco Use Status: Former Tobacco user Physical Exam Vital Signs: Last Vital Signs Temp 96.8 F 06/27/25 11:24 Pulse 73 06/27/25 11:24 BP 133/63 06/27/25 11:24 Pulse Ox 100 06/27/25 11:24 Oxygen Delivery Method Room Air 06/27/25 11:24 BMI result Body Mass Index 26.9 Assessment & Plan Assessment & Plan (1) Overweight: Code(s): E66.3 - Overweight Category: Surgical Plan: 1. Continue present exercise plan 2. Try the 16gr Fit Crunch protein or the Barebell protein bars 3. Do 2 protein bars per day especially 1-2 hours before each food meal to reduce food portions and continue with the two food meals
--- OUTSIDE RECORDS SUMMARY | 2025-06-27 11:23 | XMS_ITS ---
Author Name [facility] Organization Unknown History of Medication Use Medication Directions Dispensed Refills Start Date End Date Stat us PANTOprazole (PROTONIX) 40 MG EC tablet TAKE 1 TABLET BY MOUTH EVERY DAY 03/14/2025 active phentermine 37.5 MG capsule Take 1 capsule (37.5 mg total) by mouth every morning. 03/05/2025 active Mounjaro 10 MG/0.5ML pen-injector INJECT 1 PEN (10 MG TOTAL) UNDER THE SKIN ONCE A WEEK. 02/09/2025 active lisinopril (PRINIVIL,ZeSTRIL) 10 MG tablet TAKE 1 TABLET BY MOUTH EVERY DAY 07/15/2024 active allopurinol (ZYLOPRIM) 100 mg tablet TAKE 1 TABLET BY MOUTH EVERY DAY 05/07/2024 active simvastatin (ZOCOR) 40 MG tablet TAKE 1 TABLET BY MOUTH EVERY DAY 05/07/2024 active Problems Problem Status Onset Date Problem Type Date of Resoluti on Source Impaired fasting glucose active 2024-06-24 ProblemAct [facility] Other hyperlipidemia active 2024-06-24 ProblemAct [facility] Cervical spondylosis active 2024-06-24 ProblemAct [facility] Benign prostatic hyperplasia active 2024-06-24 ProblemAct [facility] Primary hypertension active 2024-06-24 ProblemAct [facility] 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 2024-06-24 ProblemAct [facility] Immunizations Vaccine Date Source Lot Number Status Pneumococcal Polysaccharide 23-Valent 10/06/2020 [facility] completed Pneumococcal Conjugate 13-Valent 09/25/2019 [facility] completed Tdap 01/04/2018 [facility] completed Zoster Vaccine Recombinant (Shingrix) 01/04/2018 [facility] [id number] completed Tdap 06/03/2008 [facility] completed Encounters Encounter Type Encounter Reason Primary Diagnosis Location Date [facility] 06/24/2025 [facility] 03/04/2025 Ambulatory [facility] 11/21/2024 Ambulatory Encounter for general adult medical examination without abnormal findings Encounter for general adult medical examination without abnormal findings [facility] 06/24/2024 Ambulatory [facility] 06/20/2024 Ambulatory Obesity, unspecified Obesity, unspecified [facility] 10/02/2023 Ambulatory Encounter for general adult medical examination without abnormal findings Encounter for general adult medical examination without abnormal findings [facility] 06/16/2023 Ambulatory [facility] 06/13/2023 Care Team Organization Name Specialty Phone Email Start Date End [facility] 02/18/2025 03/26/2025 Alona Mosley [id number] Primary Care 09/19/2024 03/18/2025 [facility] P[facility]an[facility] Primary [facility] 01/24/2024 03/18/2025 [facility] ELIZABETH [facility] Primary Care 10/02/2023 [facility] 06/16/2023 06/16/2023 [facility] 06/16/2023 [facility] 05/12/2023 05/12/2023
--- OUTSIDE RECORDS SUMMARY | 2025-06-27 11:23 | XMS_ITS | Encounter Summary ---
Author Organization [facility] Address [address] [place] [address] Care Team Providers Care Brim Cutter Name Role Phone Hasmukh Lua DO Unavailable [phone] Hasmukh Lua DO Primary Care Provider + [phone] Encounter Details Date Type Department Care Team (Late st Contact Info) Description 11/14/2024 Scanned Document [facility] Department of Internal Medicine Hasmukh Lua MD [address] [place] [address] [phone] Hasmukh Lua DO [address] [place] [address] Social History Tobacco Use Types Packs/Day Years [...] Description 07/02/2025 11:30 AM EDT Office Visit [facility] Department of Internal Medicine Hasmukh Lua MD [address] [place] [address] [phone] Hasmukh Lua DO [address] [place] [address] documented as of this encounter Visit Diagnoses Not on filedocumented in this encounter Care Teams Brim Cutter Relationship Specialty Start Date End Date Hasmukh Lua DO [address] [place] [address] PCP - [facility] Patients 11/30/22 Hasmukh Lua DO [address] [place] [address] PCP - General Internal Medicine 06/16/23 documented as of this encounter
--- OUTSIDE RECORDS SUMMARY | 2025-06-27 11:23 | XMS_ITS | Encounter Summary ---
Author Organization [facility] Address [address] [place] [address] Care Team Providers Care Poultry Helper Name Role Phone Hasmukh Lua DO Unavailable [phone] Hasmukh Lua DO Primary Care Provider + [phone] Encounter Details Date Type Department Care Team (Late st Contact Info) Description 11/13/2023 Scanned Document [facility] Department of Internal Medicine Hasmukh Lua MD [address] [place] [address] [phone] Hasmukh Lua DO [address] [place] [address] 9[address]65 Social History Tobacco Use Types Packs/Day Years [...] Description 07/02/2025 11:30 AM EDT Office Visit [facility] Department of Internal Medicine Hasmukh Lua MD [address] [place] [address] [phone] Hasmukh Lua DO [address] [place] [phone] documented as of this encounter Visit Diagnoses Not on filedocumented in this encounter Care Teams Poultry Helper Relationship Specialty Start Date End Date Hasmukh Lua DO [address] [place] [address] PCP - [facility] Patients 11/30/22 Hasmukh Lua DO [address] [place] [address] PCP - General Internal Medicine 06/16/23 documented as of this encounter
--- OUTSIDE RECORDS SUMMARY | 2025-06-27 11:23 | XMS_ITS | Clinical Summary ---
Author Organization [facility] Address [address] [place] [address] Care Team Providers Care Manager Functional Name Role Phone Hasmukh Lua MD Primary Care Provider + [phone] Allergies No known active allergies Medications Medication [...] 54 04/27/2015 2:14 PM EDT Temperature 36.6 C (97.8 F) 04/27/2015 2:14 PM EDT Respiratory Rate 13 03/03/2014 3:50 PM EDT [...] 1 - PCV) 2019 Influenza Vaccine (#1) 2025 RSV Adult > 60+ Yrs or Pregn ant (1 - 1-dose 75+ series) 2029 Hepatitis B Vaccines Aged Out No long er eligible based on patient's age to complete this topic RSV Ped < 20 months Aged Out No longe r eligible based on patient's age to complete this topic Advance Directives For more information, please contact: [phone] Latest Code Status on File Code Status Date Activated Date Inactivated Comments Full Code 03/03/2014 3:26 PM 03/03/2014 10:23 PM This c ode status was ascertained in the following way: discussion with patient. Care Teams Manager Functional Relationship Specialty Start Date End Date Hasmukh Lua MD PCP - General Internal Medicine 04/27/15
--- OUTSIDE RECORDS SUMMARY | 2025-06-27 11:23 | XMS_ITS | Encounter Summary ---
Author Organization [facility] Address [address] [place] [address] Care Team Providers Care Tile Sorter Name Role Phone Hasmukh Lua DO Unavailable [phone] Hasmukh Lua DO Primary Care Provider + [phone] Encounter Details Date Type Department Care Team (Late st Contact Info) Description 02/11/2025 Scanned Document [facility] Department of Internal Medicine Hasmukh Lua MD [address] [place] [address] [phone] Hasmukh Lua DO [address] [place] [address] Social History Tobacco Use Types Packs/Day Years [...] Description 07/02/2025 11:30 AM EDT [facility] Department [facility] Internal Medicine Hasmukh Lua MD [address] [place] [address] [phone] Hasmukh Lua DO [address] [place] [address] documented as of this encounter Visit Diagnoses Not on filedocumented in this encounter Care Teams Tile Sorter Relationship Specialty Start Date End Date Hasmukh Lua DO [address] [place] [address] PCP - [facility] Patients 11/30/22 Hasmukh Lua DO [address] [place] [address] PCP - General Internal Medicine 06/16/23 documented as of this encounter
--- OUTSIDE RECORDS SUMMARY | 2025-06-27 11:23 | XMS_ITS | Encounter Summary ---
Author Organization [facility] Address [address] [place] [address] Care Team Providers Care Forklift Supervisor Name Role Phone Hasmukh Lua DO Unavailable [phone] Hasmukh Lua DO Primary Care Provider +- [phone] Reason for Visit * Reason Comments Medication Refill Encounter Details Date Type Department Care Team (Late Contact Info) Description 02/13/2023 Refill [facility] Department of Internal Medicine Hasmukh Lua MD [address] [place] [address] [phone] Hasmukh Lua DO [address] [place] [address] [phone] Gastroesophageal reflux disease without esophagitis (Primary Dx) [...] Department of Internal Medicine Hasmukh Lua MD [address] [place] [phone] Hasmukh Lua DO [address] [place] [address] 9[address] documented as of this encounter Visit Diagnoses Diagnosis Gastroesophageal reflux disease without esophagitis- Primary Esophageal reflux documented in this encounter Care Teams Forklift Supervisor Relationship Specialty Start Date End Date Hasmukh Lua DO [address] [place] [address] PCP - [facility] Patients 11/30/22 Hasmukh Lua DO [address] [place] [address] PCP - General Internal Medicine 06/16/23 documented as of this encounter
--- OUTSIDE RECORDS SUMMARY | 2025-06-27 11:23 | XMS_ITS | Encounter Summary ---
Author Organization [facility] Address [address] [place] [address] Care Team Providers Care Teaseler Name Role Phone Hasmukh Lua DO Unavailable [phone] Hasmukh Lua DO Primary Care Provider + [phone] Encounter Details Date Type Department Care Team (Late st Contact Info) Description 11/20/2024 Scanned Document [facility] Department of Internal Medicine Hasmukh Lua MD [address] [place] [address] [phone] Hasmukh Lua DO [address] [place] [address] Social History Tobacco Use Types Packs/Day Years [...] 07/02/2025 11:30 AM EDT Office Visit [facility] Department of Internal Medicine Hasmukh Lua MD [address] [place] [address] [phone] Hasmukh Lua DO [address] [place] [phone] documented as of this encounter Visit Diagnoses Not on filedocumented in this encounter Care Teams Teaseler Relationship Specialty Start Date End Date Hasmukh Lua DO [address] [place] [address] PCP - [facility] Patients 11/30/22 Hasmukh Lua DO [address] [place] [address] PCP - General Internal Medicine 06/16/23 documented as of this encounter
--- OUTSIDE RECORDS SUMMARY | 2025-06-27 11:23 | XMS_ITS | Encounter Summary ---
Author Organization [facility] Address [address] [place] [address] Care Team Providers Care Mold Filling Operator Name Role Phone Hasmukh Lua DO Unavailable [phone] Hasmukh Lua DO Primary Care Provider +- [phone] Encounter Details Date Type Department Care Team (Late st Contact Info) Description 06/25/2025 Orders Only [facility] Department of Internal Medicine Hasmukh Lua MD [address] [place] [address] [phone] Hasmukh Lua DO [address] [place] [phone] Anemia, unspecified type (Primary Dx) Social History Tobacco Use Types [...] Department of Internal Medicine Hasmukh Lua MD [address] [place] [address] [phone] Hasmukh Lua DO [address] [place] [address] documented as of this encounter Procedures Procedure Name Priority Date/Time Associated Diagnosis Comments IRON AND TOTAL IRON BINDING CAPACITY Routine 06/24/2025 2:17 PM EDT Anemia, unspecified type FERRITIN Routine 06/24/2025 2:17 PM EDT Anemia, unspecified type documented in this encounter Results * Ferritin (06/24/2025 2:17 PM EDT) Ferritin 131 30 - 400 ng/mL [facility] Blood Blood specimen / Unknown 06/24/2025 2:17 PM EDT 06/25/2025 10:03 AM EDT Hasmukh Lua DO LAB BLOOD ORDERABLES Final Result Performing Organization Address City/[facility]/ZIP Co de Phone Number [facility] [address] [place] [address] * Iron and Total Iron Binding Capacity (06/24/2025 2:17 PM EDT) Iron 150 45 - 160 ug/dL [facility] UIBC 136 110 - 370 ug/dL [facility] Total Iron Binding Capacity 286 228 - 428 ug/dL [facility] Iron Sat 52 15 - 60 % [facility] Blood Blood specimen / Unknown 06/24/2025 2:17 PM EDT 06/25/2025 10:03 AM EDT Hasmukh Lua DO LAB BLOOD ORDERABLES Final Result [address] documented in this encounter Visit Diagnoses Diagnosis Anemia, unspecified type- Primary documented in this encounter Care Teams Mold Filling Operator Relationship Specialty Start Date End Date Hasmukh Lua DO [address] [place] [address] PCP - [facility] Patients 11/30/22 Hasmukh Lua DO [address] [place] [address] PCP - General Internal Medicine 06/16/23 documented as of this encounter
--- OUTSIDE RECORDS SUMMARY | 2025-06-27 11:23 | XMS_ITS | Encounter Summary ---
Author Organization [facility] Address [address] [place] [address] Care Team Providers Care Frame Gate Mortiser Operator Name Role Phone Hasmukh Lua DO Unavailable [phone] Hasmukh Lua DO Primary Care Provider +- [phone] Encounter Details Date Type Department Care Team (Late st Contact Info) Description 06/16/2023 Scanned Document [facility] Department of Internal Medicine Hasmukh Lua MD [address] [place] [phone] Hasmukh Lua DO [address] [place] [address] Social History Tobacco Use Types Packs/Day Years [...] of Internal Medicine Hasmukh Lua MD [address] [place] [phone] Hasmukh Lua DO [address] [place], [place] 218233 documented as of this encounter Visit Diagnoses Not on filedocumented in this encounter Care Teams Frame Gate Mortiser Operator Relationship Specialty Start Date End Date Hasmukh Lua DO [address] [place] [address] PCP - [facility] Patients 11/30/22 Hasmukh Lua DO [address] [place] [address] PCP - General Internal Medicine 06/16/23 documented as of this encounter
--- OUTSIDE RECORDS SUMMARY | 2025-06-27 11:23 | XMS_ITS | Clinical Summary ---
Author Organization Formerly [facility] Address [address] [place] [address] Care Team Providers Care Delinquency Counselor Name Role Phone Hasmukh Lua DO Unavailable [phone] Hasmukh Lua DO Primary Care Provider [phone] Allergies No known active allergies Medications lisinopril (PRINIVIL,ZeSTRIL ) 10 MG tabletIndications :Primary hypertension TAKE 1 TABLET BY MOUTH EVERY DAY 90 tablet 3 07/15/20 24 Active PANTOprazole (PROTONIX) 40 MG EC tabletIndications :Gastroesophageal reflux disease without esophagitis TAKE 1 TABLET BY MOUTH EVERY DAY 90 tablet 3 03/14/20 25 Active tirzepatide (Mounjaro) 10 mg/0.5 mL pen-injectorIndic ations:Class 1 obesity with body mass index (BMI) of 32.0 to 32.9 in adult, unspecified obesity type, unspecified whether serious comorbidity present Inject 1 Pen (10 mg total) under the skin once a week. 2 each 5 05/27/20 25 Active simvastatin (ZOCOR) 40 MG tabletIndications :Hyperlipidemia, unspecified hyperlipidemia type TAKE 1 TABLET BY MOUTH EVERY DAY 90 tablet 3 06/03/20 25 Active allopurinol (ZYLOPRIM) 100 mg tabletIndications :Gout, unspecified cause, unspecified chronicity, unspecified site TAKE 1 TABLET BY MOUTH EVERY DAY 90 tablet 3 06/03/20 25 Active phentermine 37.5 MG capsuleIndication s:Class 1 obesity with body mass index (BMI) of 32.0 to 32.9 in adult, unspecified obesity type, unspecified whether serious comorbidity present Take 1 capsule (37.5 mg total) by mouth every morning. 90 capsule 06/04/20 25 Active simvastatin (ZOCOR) 40 MG tabletIndications :Hyperlipidemia, unspecified hyperlipidemia type TAKE 1 TABLET BY MOUTH EVERY DAY 90 tablet 3 05/07/20 24 025 Discontinued allopurinol (ZYLOPRIM) 100 mg tabletIndications :Gout, unspecified cause, unspecified chronicity, unspecified site TAKE 1 TABLET BY MOUTH EVERY DAY 90 tablet 3 05/07/20 24 025 Discontinued phentermine 37.5 MG capsuleIndication s:Class 1 obesity with body mass index (BMI) of 32.0 to 32.9 in adult, unspecified obesity type, unspecified whether serious comorbidity present Take 1 capsule (37.5 mg total) by mouth every morning. 90 capsule 03/05/20 25 025 Discontinued(Re order) Active Problems Problem Noted Date Diagnosed Date Primary hypertension 06/24/2024 Acute idiopathic gout of multiple sites 06/24/20 Other hyperlipidemia 06/24/2024 Benign prostatic hyperplasia 06/24/2024 Cervical spondylosis 06/24/2024 Impaired fasting glucose 06/24/2024 Resolved Problems Problem Noted Date Diagnosed Date Resolved Date Routine general medical exam ination at a health care facility 06/16/2023 09/25/2024 Encounters Date Type Department Care Team Description 06/25/2025 Orders Only [facility] Department of Internal Medicine Hasmukh Lua MD [address] [place] [phone] Hasmukh Lua DO Anemia, unspecified type (Primary Dx) 06/16/2025 Orders Only [facility] Department of Internal Medicine Hasmukh Lua MD [address] [place] [phone] Hasmukh Lua DO Impaired fasting glucose (Primary Dx); Urinary tract infection symptoms; Benign prostatic hyperplasia with lower urinary tract symptoms, symptom details unspecified; Other hyperlipidemia ; Routine general medical examination at a health care facility 06/04/2025 Refill [facility] Department of Internal Medicine Hasmukh Lua MD [address] [place] [phone] Hasmukh Lua DO Class 1 obesity with body mass index (BMI) of 32.0 to 32.9 in adult, unspecified obesity type, unspecified whether serious comorbidity present 06/04/2025 Telephone [facility] Department of Internal Medicine Hasmukh Lua MD [address] [place] [phone] Hasmukh Lua DO 06/03/2025 Refill [facility] of Internal Medicine Hasmukh Lua MD [address] [place] [phone] Hasmukh Lua DO Hyperlipidemia, unspecified hyperlipidemia type ; Gout, unspecified cause, unspecified chronicity, unspecified site 05/27/2025 Refill [facility] Department of Internal Medicine Hasmukh Lua MD [address] [place] [phone] Hasmukh Lua DO Class 1 obesity with body mass index (BMI) of 32.0 to 32.9 in adult, unspecified obesity type, unspecified whether serious comorbidity present 05/27/2025 Telephone [facility] Department of Internal Medicine Hasmukh Lua MD [address] [place] [phone] Hasmukh Lua DO 05/12/2025 Telephone [facility], [address] [phone] Greer Figueroa from Last 3 Months Immunizations Immunization Administration [...] 81 11/21/2024 7:55 AM EST Temperature 36.2 C (97.1 F) 11/21/2024 7:55 AM EST Respiratory Rate - - Oxygen Saturation 100% [...] Description 07/02/2025 11:30 AM EDT Office Visit [facility] Department of Internal Medicine Hasmukh Lua MD [address] [place] [phone] Hasmukh Lua DO [address] [place], [place] [phone] Health Maintenance Due Date Last Done Comments Advance Care Planning 1955 Hepatitis C Virus Screening 1955 Zoster (Shingles) Vaccine (2 of 2) 03/01/2018 01/04/2018 COVID-19 Vaccine (3 - 2023-2 5 season) 2024 06/10/2021, 2021 Colonoscopy 05/15/2025 05/15/2015 (Previously Completed) Influenza Vaccine 05/30/2025 DTaP/Tdap/Td Vaccines (3 - T d or Tdap) 01/05/2028 01/04/2018, 06/03/2008 RSV Vaccine 60 years and older and Patients (1 - 1-dose 75+ series) 2029 Pneumococcal Vaccines 50+ Completed 2019, 09/25/2019 Hepatitis B Vaccines Aged Out No long er eligible based on patient's age to complete this topic Procedures Procedure Name Priority Date/Time Associated Diagnosis Comments URINALYSIS WITH REFLEX TO MICROSCOPIC Routine 06/24/2025 2:18 PM EDT Impaired fasting glucose Benign prostatic hyperplasia with lower urinary tract symptoms, symptom details unspecified Other hyperlipidemia Routine general medical examination at a health care facility FERRITIN Routine 06/24/2025 2:17 PM EDT Anemia, unspecified type IRON AND TOTAL IRON BINDING CAPACITY Routine 06/24/2025 2:17 PM EDT Anemia, unspecified type TSH REFLEX TO FREE T4 Routine 06/24/2025 2:17 PM EDT Impaired fasting glucose Benign prostatic hyperplasia with lower urinary tract symptoms, symptom details unspecified Other hyperlipidemia Routine general medical examination at a [facility] facility PSA, TOTAL, REFLEX PSA, FREE Routine 06/24/2025 2:17 PM EDT Impaired fasting glucose Benign prostatic hyperplasia with lower urinary tract symptoms, symptom details unspecified Other hyperlipidemia Routine general medical examination at a [facility] facility LIPID PANEL Routine 06/24/2025 2:17 PM EDT Impaired fasting glucose Benign prostatic hyperplasia with lower urinary tract symptoms, symptom details unspecified Other hyperlipidemia Routine general medical examination at a [facility] care facility COMPREHENSIVE METABOLIC PANEL Routine 06/24/2025 2:17 PM EDT Impaired fasting glucose Benign prostatic hyperplasia with lower urinary tract symptoms, symptom details unspecified Other hyperlipidemia Routine general medical examination at a [facility] care facility COMPLETE BLOOD COUNT, WITH DIFFERENTIAL Routine 06/24/2025 2:17 PM EDT Impaired fasting glucose Benign prostatic hyperplasia with lower urinary tract symptoms, symptom details unspecified Other hyperlipidemia Routine general medical examination at a health care facility from Last 3 Months Results * (ABNORMAL) Urinalysis with Reflex to Microscopic (06/24/2025 2:18 PM EDT) Color Yellow YELLOW [facility] Clarity Clear CLEAR [facility] Specific Cascade 1.026 1.005 - 1.035 N/A [facility] pH 5.5 5.0 - 8.0 [facility] Leukocyte Esterase negative NEGATIVE Lakeisha/uL [facility] Nitrite negative NEGATIVE [facility] Protein negative NEGATIVE [facility] Glucose normal NEGATIVE [facility] Ketones negative NEGATIVE [facility] Bilirubin negative NEGATIVE [facility] Urobilinogen normal NORMAL mg/dL [facility] Blood negative NEGATIVE [facility] Red Blood Cell 0-2 0 - 2 HPF [facility] White Blood Cell 0-5 0 - 5 HPF [facility] Mucous Rare NONE SEEN LPF [facility] Sperm, UA Present(A) NONE SEEN HPF [facility] Hyaline Cast 3-5(A) NONE SEEN LPF [facility] Urine Urine specimen obtained by clean catch procedure / Unknown 06/24/2025 2:18 PM EDT 06/24/2025 7:37 PM EDT Hasmukh Lua DO URINE ORDERABLES Final Res ult Performing Organization Address City/[facility]/ZIP Co de Phone Number [facility] [address] [place] [address], * Iron and Total Iron Binding Capacity [...] BLOOD ORDERABLES Final Result Performing Organization Address City/[facility]/ZIP Co de Phone Number [facility] [address] [place] [address], * TSH REFLEX FREE T4 (06/24/2025 2:17 PM EDT) Tsh Reflex To Free T4 3.12 0.40 - 4.50 uIU/ml [facility] Blood Blood specimen / Unknown 06/24/2025 2:17 PM EDT 06/24/2025 7:04 PM EDT Hasmukh Lua DO LAB BLOOD ORDERABLES Final Result Performing Organization Address City/[facility]/ZIP Co de Phone Number [facility] [address] [place] [address], * PSA, TOTAL, REFLEX PSA, FREE (06/24/2025 2:17 PM EDT) [facility] PSA, Total 1.970 0.000 - 4.000 ng/mL [facility] Comment: Sally ECLIA methodology. Values obtained with different assay methods or kits cannot be used interchangeably. Results cannot be interpreted as absolute evidence of the presence or absence of malignant disease. Blood Blood specimen / Unknown 06/24/2025 2:17 PM EDT 06/24/2025 7:04 PM EDT Hasmukh Lua DO LAB BLOOD ORDERABLES Final Result [facility] [address] [place] [address], * (ABNORMAL) Complete Blood Count, with Differential (06/24/2025 2:17 PM EDT) [facility] WBC 6.19 4.00 - 11.00 Thousand/u L [facility] RBC 3.94(L) 4.69 - 6.13 Million/uL [facility] Hemoglobin 12.0(L) 13.3 - 17.0 g/dL [facility] Hematocrit 36.4(L) 42.1 - 50.5 % [facility] MCV 92.4 80.0 - 97.0 fL [facility] MCH 30.5 27.0 - 31.2 pg [facility] MCHC 33.0 31.8 - 35.4 g/dL [facility] RDW-CV 13.5 11.6 - 14.8 % [facility] Platelet Count 182.0 142.0 - 424.0 Thousand/u L [facility] MPV 11.9 8.0 - 13.0 fL [facility] Neutrophil % 46.9 37.0 - 80.0 % [facility] Lymph % 33.1 10.0 - 50.0 % [facility] Monocytes % 10.8 1.0 - 11.9 % [facility] Eosinophils, % 7.6(H) 0.0 - 6.9 % [facility] Basophils, % 1.1 0.0 - 2.4 % [facility] Absolute Neutrophil Count 2.9 2.0 - 6.9 Thousand/u L [facility] Absolute Lymphocytes 2.1 0.6 - 3.4 Thousand/u L [facility] Absolute Monocytes 0.7 0.1 - 0.8 Thousand/u L [facility] Absolute Eosinophils 0.5 0.0 - 0.6 Thousand/u L [facility] Absolute Basophils 0.1 0.0 - 0.1 Thousand/u L [facility] Immature Granulocytes 0.500 0.001 - 0.900 % [facility] Abs Immature Granulocytes 0.0300 0.0000 - 0.0700 Thousand/u L [facility] Nucleated RBCS (%) 0.0 0.0 - 0.2 % [facility] NRBC, Absolute 0.000 0.000 - 0.012 Thousand/u L [facility] Blood Blood specimen / Unknown 06/24/2025 2:17 PM EDT 06/24/2025 7:04 PM EDT Hasmukh Lua LAB BLOOD ORDERABLES Final Result Performing Organization Address City/[facility]/ZIP Co de Phone Number [facility] [address] [place] [address], * Ferritin (06/24/2025 2:17 PM EDT) Pathologist [facility] Ferritin 131 30 - 400 ng/mL [facility] Blood Blood specimen / Unknown 06/24/2025 2:17 PM EDT 06/25/2025 10:03 AM EDT Hasmukh Lua LAB BLOOD ORDERABLES Final Result Performing Organization Address City/[facility]/ZIP Co de Phone Number [facility] [address] [place] [address], * (ABNORMAL) LIPID PANEL (06/24/2025 2:17 PM EDT) Cholesterol, Total 184 112 - 239 mg/dL [facility] Triglycerides 87 <150 mg/dL [facility] Total Hdl-C Direct 95 40 - 120 mg/dL [facility] LDL Cholesterol 72 57 - 130 mg/dL [facility] Comment: Limitations: Triglycerides >or= 400 mg/dl, samples containing significant amounts of chylomicrons (nonfasting specimen), or in patients with type III hyperlipoproteinemia this calculated LDL may be invalid and a direct LDL is recommended. Risk Factor 1.9(L) 3.3 - 5.0 [facility] Non HDL Cholesterol 89 [facility] Blood Blood specimen / Unknown 06/24/2025 2:17 PM EDT 06/24/2025 7:04 PM EDT us Hasmukh Lua DO LAB BLOOD ORDERABLES Final Result [facility] [address] [place] [id number], * Comprehensive Metabolic Panel (06/24/2025 2:17 PM EDT) Glucose 88 70 - 99 mg/dL [facility] Blood Urea Nitrogen 20 7 - 22 mg/dL [facility] Creatinine, Ser 1.0 0.5 - 1.2 mg/dL [facility] Bun / Creat Ratio 20 11 - 30 [facility] Sodium 139 133 - 145 mmol/L [facility] Potassium 4.4 3.3 - 5.1 mmol/L [facility] Chloride 103 96 - 108 mmol/L [facility] CO2 24 22 - 31 mmol/L [facility] Anion Gap 12 3 - 19 mmol/L [facility] Calcium 9.3 8.8 - 10.6 mg/dL [facility] Total Protein 7.1 6.0 - 8.3 g/dL [facility] Albumin 4.2 3.2 - 4.8 g/dL [facility] Globulin 2.9 2.0 - 3.5 g/dL [facility] Albumin/Globulin Ratio 1.4 1.0 - 5.0 [facility] Aspartate Aminotrans (AST) 24 8 - 37 IU/L [facility] Alanine Aminotrans (ALT) 14 5 - 40 IU/L [facility] Alkaline Phosphatase 51 35 - 140 IU/L [facility] Bilirubin, Total 0.7 0.0 - 1.0 mg/dL [facility] GFR Estimated (calculated) >60 >60 [facility] Comment: As of 2021, the [facility] has updated the creatinine- based estimated glomerular filtration rate (eGFRcr) to the updated CKD-EPI 2021 equation. This change removes the race coefficient of the older calculation, and was made based on recommendations from the National Kidney Foundation and the [place] [employer]ph[employer]'s Task Force. The new eGFRcr has similar overall performance characteristics to the older equation and has been assessed to not have potential consequences that disproportionately affect any one group of individuals. However, some mild variation from the older eGFR equation can be expected especially in younger age patients and at higher eGFRcr values. Blood Blood specimen / Unknown 06/24/2025 2:17 PM EDT 06/24/2025 7:04 PM EDT us Hasmukh Lua DO LAB BLOOD ORDERABLES Final Result [facility] [address] [place] [address], from Last 3 Months Insurance MEDICARE PART A & B Care Teams Delinquency Counselor Relationship Specialty Start Date End Date Hasmukh Lua DO [address] [place], [place] [phone] PCP - [facility] Patients 11/30/22 Hasmukh Lua DO [address] [place] [phone] PCP - General Internal Medicine 06/16/23
--- OUTSIDE RECORDS SUMMARY | 2025-06-27 11:23 | XMS_ITS | Clinical Summary ---
Author Organization [facility] Address [address] [place] [address] Care Team Providers Care Small Engine Technician Name Role Phone Hasmukh Lua MD Primary Care Provider [phone]- [phone] Allergies No known active allergies Medications calcium carbonate-mag hydroxid 1,000-200 mg tablet,chewable Take by mouth. Active lansoprazole (PREVACID) 30 mg capsule 5 Active multivitamin,tx -lhzu-Tl-WW-min 27-0.4 mg tablet Take by mouth. Activ [...] - 2023-2 5 season) 2024 Influenza Vaccine (#1) 2025 HPV Vaccines Aged Out No longer eligi ble based on patient's age to complete this topic Hepatitis A Vaccines Aged Out No long er eligible based on patient's age to complete this topic Meningococcal Vaccine Aged Out No roya mary carmen eligible based on patient's age to complete this topic Insurance MEDICARE PART A & B [place] [id number] Care Teams Small Engine Technician Relationship Specialty Start Date End Date Hasmukh Lua MD [address] [place] [id number] PCP - General 12/27/17
[2025-06-27 11:24] VITALS: BP 133/63; PULSE 73; TEMP 36; O2SAT 100; BMI 26.9
== END 2025-06-27 12:58 | disposition home or self-care (01) ==
LOC: HO.HBS 10:46
PROVIDERS: PCP Internal Medicine; Visit Provider Surgery
DX: E66.3 Overweight (principal); Z68.26 Body mass index [BMI] 26.0-26.9, adult
CPT/HCPCS: 99213

== ENCOUNTER → 2025-06-27 10:45 | Outpatient (BNVA) | payer MEDICARE, BC, SELFPAY | PROVIDERS: PCP Internal Medicine; Visit Provider Surgery | DX: E66.3 Overweight (principal); Z68.26 Body mass index [BMI] 26.0-26.9, adult | CPT/HCPCS: 99212 ==

== ENCOUNTER → 2025-10-16 11:27 | Outpatient (BNVA) | payer MEDICARE, BC, SELFPAY | PROVIDERS: PCP Internal Medicine; Visit Provider Surgery | DX: K91.2 Postsurgical malabsorption, not elsewhere classified (principal); Z98.84 Bariatric surgery status | CPT/HCPCS: 99212 ==

== ENCOUNTER 2025-10-16 11:49 | Outpatient (AMB) | payer MEDICARE, BC, SELFPAY ==
--- NOTE | 2025-10-16 11:40 | A.OFFVIS_ITS ---
VS Expanded 10/16/25 11:43 BP 131/67 Blood Pressure Location Rt brachial Blood Pressure Position Sitting Pulse 74 Pulse Source Pulse Oximeter Temp 96.9 F Temperature Source Temporal Artery Scan Pulse Oximetry 99 Oxygen Delivery Method Room Air Height 5 ft 9 in Weight 178 lb BMI 26.3 Body Fat % 22.6 Body Fat Mass 40.2 Fat Free Mass 137.8 Visceral Fat Rating 14.0 Body Water % 53.0 Body Water Mass 94.4 Muscle Mass/Score 131.0 Basal Metabolic Rate/Score 1,794 Intake Visit Reasons: OV Follow Up s/p LRYGP 2012 Allergies No Known Allergies Allergy (Verified 10/16/25 11:46) HPI Comments Details: 4lbs down from last visit No complaints Off the GLP-1 agonists Is doing a muffin for breakfast. No lunch. Dinner is 6 forksfuls of meat and 6 forkfuls of salad Exercise: is doing treadmill for 500 calories x5-6 days per week [facility] Medical History (Updated 03/07/25 @ 12:01 by Isaac Rizvi MD) Non-insulin dependent type 2 diabetes mellitus Hypertension Surgical History S/P gastric bypass Family History Mother No problems noted. Father No problems noted. Brother No problems noted. Brother No problems noted. Brother No problems noted. Sister No problems noted. Sister No problems noted. Sister No problems noted. Social History Alcohol intake: current Alcohol intake frequency: a few times a week Alcohol type: wine Patient Tobacco Use Status: Former Tobacco user Physical Exam Vital Signs: Last Vital Signs Temp 96.9 F 10/16/25 11:43 Pulse 74 10/16/25 11:43 BP 131/67 10/16/25 11:43 Pulse Ox 99 10/16/25 11:43 Oxygen Delivery Method Room Air 10/16/25 11:43 BMI result Body Mass Index 26.3 Assessment & Plan Assessment & Plan (1) Intestinal malabsorption: Code(s): K90.9 - Intestinal malabsorption, unspecified Category: Medical Qualifiers: Intestinal malabsorption type: other intolerance-related malabsorption Qualified Code(s): K90.49 - Malabsorption due to intolerance, not elsewhere cl assified Plan: 1. Add a 15gr liquid Oikos protein shake 2. Continue present exercise plan 3. Will do blood work at next visit
[2025-10-16 11:43] VITALS: BP 131/67; PULSE 74; TEMP 36.1; O2SAT 99; BMI 26.3
== END 2025-10-16 22:34 | disposition home or self-care (01) ==
LOC: HO.HBS 11:49
PROVIDERS: PCP Internal Medicine; Visit Provider Surgery
DX: K91.2 Postsurgical malabsorption, not elsewhere classified (principal)
CPT/HCPCS: 99213